=== PATIENT | male | born 1980 | race Caucasian/White ===

== ENCOUNTER 2017-04-19 12:19 | Emergency (ER) | payer MEDICAID | END 2017-04-19 15:55 | disposition home or self-care (01) | LOC: D.ER 12:19 | DX: S00.81XA Abrasion of other part of head, initial encounter (principal); S61.215A Laceration without foreign body of left ring finger without damage to nail, initial encounter; W29.8XXA Contact with other powered hand tools and household machinery, initial encounter; Y93.89 Activity, other specified; Y92.019 Unspecified place in single-family (private) house as the place of occurrence of the external cause ==